=== PATIENT | male | born 1995 | race Caucasian/White ===

== ENCOUNTER 2019-03-09 01:25 | Emergency (ER) | payer BC, OTHER ==
[2019-03-09 01:33] VITALS: BP 148/84; PULSE 77; RESP 18; TEMP 97.6
--- NOTE | 2019-03-09 01:46 | ED ---
ENT HPI - General Chief complaint: ENT Stated complaint: Throat Pain Time Seen by Provider: 03/09/19 01:33 Source: patient Mode of arrival: ambulatory Limitations: no limitations - History of Present Illness Initial comments: Patient is a 24-year-old male presenting to the emergency department with chief complaint of a sore throat. Patient reports that initially started about 5 days ago and is gradually increased in severity. Patient also reports he developed a nonproductive cough over the last 2 days. Patient reports initially he had clear bilateral rhinorrhea which is since resolved. Patient denies otalgia, fevers, chills or night sweats. Patient denies any nausea vomiting diarrhea. 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 - Related Data Home Medications Medication Instructions Recorded Confirmed No Known Home Medications 03/09/19 03/09/19 Allergies Allergy/AdvReac Type Severity Reaction Status Date / Time ondansetron HCl Allergy Unknown Verified 03/09/19 01:29 [From Zofran (as hydrochloride)] Penicillins Allergy Unknown Verified 03/09/19 01:29 vancomycin Allergy Unknown Verified 03/09/19 01:29 Review of Systems ROS Statement: Those systems with pertinent positive or pertinent negative responses have been documented in the HPI. ROS Other: All systems not noted in ROS Statement are negative. Past Medical History Additional Past Medical History / Comment(s): palpitations, History of Any Multi-Drug Resistant Organisms: None Reported Past Surgical History: Orthopedic Surgery Additional Past Surgical History / Comment(s): right shoulder, Past Psychological History: No Psychological Hx Reported Smoking Status: Never smoker Past Alcohol Use History: Rare Past Drug Use History: None Reported General Exam Limitations: no limitations General appearance: alert, in no apparent distress Head exam: Present: atraumatic, normocephalic, normal inspection Eye exam: Present: normal appearance Pupils: Present: normal accommodation ENT exam: Present: normal exam, normal oropharynx (Uvula midline. No tonsillar erythema, enlargement or exudates. No oral lesions noted. No signs of peritonsillar abscess.), mucous membranes moist, TM's normal bilaterally (A lateral cerumen impaction.), normal external ear exam Neck exam: Present: normal inspection, full ROM. Absent: lymphadenopathy Respiratory exam: Present: normal lung sounds bilaterally. Absent: respiratory distress, wheezes, rales Cardiovascular Exam: Present: regular rate, normal rhythm, normal heart sounds Extremities exam: Present: normal inspection, full ROM Back exam: Present: normal inspection, full ROM Neurological exam: Present: alert, oriented X3 Psychiatric exam: Present: normal affect, normal mood Skin exam: Present: warm, dry, intact, normal color Course Vital Signs 03/09/19 01:29 Temperature 97.6 F Pulse Rate 77 Respiratory 18 Rate Blood Pressure 148/84 O2 Sat by Pulse 100 Oximetry Medical Decision Making - Medical Decision Making Patient is a 24-year-old male presenting to emergency Department with chief complaint of a sore throat. Physical examination negative for any signs of strep pharyngitis or peritonsillar abscess. I suspect the cause of his symptoms to be based on the viral etiology. Patient advised to try [id number] menthol drops. Strict return parameters were thoroughly discussed with patient was understanding and agreeable. Case discussed with physician. Disposition Clinical Impression: Sore throat (viral) Disposition: HOME SELF-CARE Condition: Stable Instructions (If sedation given, give patient instructions): Benzocaine/Menthol (By mouth) Additional Instructions: Please follow up with primary care. Please return to emergency department if symptoms worsen. Is patient prescribed a controlled substance at d/c from ED?: No Referrals: None,Stated [Primary Care Provider] - 1-2 days Time of Disposition: 01:46
== END 2019-03-09 01:56 | disposition home or self-care (01) ==
LOC: EC 01:25
DX: J02.8 Acute pharyngitis due to other specified organisms (principal); H61.20 Impacted cerumen, unspecified ear; Z88.0 Allergy status to penicillin; Z88.1 Allergy status to other antibiotic agents; Z88.8 Allergy status to other drugs, medicaments and biological substances
CPT/HCPCS: 99282

== ENCOUNTER 2020-03-13 19:47 | Emergency (ER) | payer BC ==
--- NOTE | 2020-03-13 20:38 | XR ---
EXAMINATION TYPE: XR wrist complete RT DATE OF EXAM: 03/13/2020 COMPARISON: NONE HISTORY: Pain TECHNIQUE: 4 views FINDINGS: Carpal bones are intact. I see no fracture nor dislocation. Joint spaces are normal. Distal radius and ulna appear intact. Scaphoid appears normal. IMPRESSION: Negative right wrist exam.
--- NOTE | 2020-03-13 20:39 | XR ---
EXAMINATION TYPE: XR hand complete RT DATE OF EXAM: 03/13/2020 COMPARISON: NONE HISTORY: Pain TECHNIQUE: 3 views FINDINGS: Metacarpals are intact. Joint spaces are normal. The fingers are intact. There are no patho logic calcifications. IMPRESSION: Negative right hand exam.
[2020-03-13] MEDS ORDERED: DIPH,PERTUS(ACELL)TETVAC-LF 0.5 ML VIAL IM ONE (21:38)
--- NOTE | 2020-03-13 21:39 | ED ---
Upper Extremity HPI - General Chief Complaint: Extremity Injury, Upper Stated Complaint: Right hand pain Time Seen by Provider: 03/13/20 20:59 Source: patient Mode of arrival: ambulatory Limitations: no limitations - History of Present Illness Initial Comments: 25 year-old male patient presents to the emergency department today for evaluation of right hand pain. Patient states couple of hours ago he became upset and punched a wooden floor. Patient states he is having pain and swelling over the dorsal aspect of his hand with some numb sensation in the right fourth and fifth digits. Patient states he has had tendon injury to the hand in the past. Denies taking any medication for pain. Denies any other injuries.Patient denies any headache, neck pain, back pain, chest pain, shortness of breath, dizziness, weakness, abdominal pain, nausea, vomiting, or difficulties with bowel movements or urination. - Related Data Home Medications Medication Instructions Recorded Confirmed No Known Home Medications 03/09/19 03/09/19 Allergies Allergy/AdvReac Type Severity Reaction Status Date / Time ondansetron HCl Allergy Unknown Verified 03/13/20 20:08 [From Zofran (as hydrochloride)] Penicillins Allergy Unknown Verified 03/13/20 20:08 vancomycin Allergy Unknown Verified 03/13/20 20:08 Review of Systems ROS Statement: Those systems with pertinent positive or pertinent negative responses have been documented in the HPI. ROS Other: All systems not noted in ROS Statement are negative. Past Medical History Additional Past Medical History / Comment(s): palpitations, History of Any Multi-Drug Resistant Organisms: None Reported Past Surgical History: Orthopedic Surgery Additional Past Surgical History / Comment(s): right shoulder, Past Psychological History: No Psychological Hx Reported Smoking Status: Never smoker Past Alcohol Use History: Rare Past Drug Use History: None Reported General Exam Limitations: no limitations General appearance: alert, in no apparent distress Respiratory exam: Present: normal lung sounds bilaterally. Absent: respiratory distress, wheezes, rales, rhonchi, stridor Cardiovascular Exam: Present: regular rate, normal rhythm, normal heart sounds. Absent: systolic murmur, diastolic murmur, rubs, gallop, clicks Extremities exam: Present: full ROM, normal capillary refill, other (Mild swelling dorsal right hand. He is pink, warm, dry. Cap refills less than 3 seconds. Radial pulses 2+ and equal bilaterally. No anatomical snuffbox tenderness. A superficial abrasion noted to the dorsal fourth finger right hand.). Absent: normal inspection, tenderness, pedal edema, joint swelling, calf tenderness Neurological exam: Present: alert, oriented X3, CN II-XII intact Psychiatric exam: Present: normal affect, normal mood Skin exam: Present: warm, dry, intact, normal color. Absent: rash Course Vital Signs 03/13/20 03/13/20 20:05 21:47 Temperature 98.1 F 98.7 F Pulse Rate 82 93 Respiratory 18 19 Rate Blood Pressure 149/83 140/84 O2 Sat by Pulse 96 Oximetry Medical Decision Making - Medical Decision Making 25-year-old male patient presented to the emergency department today for evaluation of hand pain after punching the floor. Physical examination did reveal mild soft tissue swelling over the dorsal aspect with a superficial abrasion noted over the dorsal aspect of the right fourth digit. We did update patient's tetanus. Declines pain medication at this time. X-rays of the hand and wrist were negative for acute fractures. He is given an Rakesh wrap. We discharged follow up with his primary care physician for recheck in 1-2 days. He is instructed to follow up with orthopedics if still having pain symptoms after 7-10 days. Return parameters were discussed in detail. He verbalizes understanding and agrees with this plan. - Radiology Data Radiology results: report reviewed, image reviewed Disposition Clinical Impression: Contusion of right hand Disposition: HOME SELF-CARE Condition: Good Instructions (If sedation given, give patient instructions): Contusion in Adults (ED) Additional Instructions: Rest, ice, elevate the right hand. Follow-up with primary care physician for recheck in 1-2 days. Have repeat x-rays performed in 7-10 days if pain symptoms persist. Return to the emergency department immediately for any new, worsening, or concerning symptoms. Is patient prescribed a controlled substance at d/c from ED?: No Referrals: None,Stated [Primary Care Provider] - 1-2 days Scar Dillon MD [STAFF PHYSICIAN] - 1-2 days Time of Disposition: 21:39
[2020-03-13 21:53] VITALS: BP 140/84; PULSE 93; RESP 19; TEMP 98.7
== END 2020-03-13 21:47 | disposition home or self-care (01) ==
LOC: EC 19:47
DX: S60.221A Contusion of right hand, initial encounter (principal); Z23 Encounter for immunization; Z88.0 Allergy status to penicillin; Z88.1 Allergy status to other antibiotic agents; Z88.8 Allergy status to other drugs, medicaments and biological substances; W22.8XXA Striking against or struck by other objects, initial encounter
CPT/HCPCS: 90471; 90715; 99283